=== PATIENT | male | born 1950 | race Caucasian/White ===

== ENCOUNTER → 2017-02-10 | Outpatient (CLI) | payer OTHER ==
--- NOTE | 2017-02-10 16:22 | RAD ---
PROCEDURE MRI study of the right shoulder without contrast HISTORY Right shoulder pain. History of glenoid cavity fracture. No surgical history. TECHNIQUE Noncontrast MRI sequences of the right shoulder were performed in all 3 planes. COMPARISON Radiographic series performed on February 08, 2017. No previous MRI is available. FINDINGS There is diffuse increased signal within the infraspinatus and supraspinatus tendons consistent with tendinosis. There is a partial articular surface tear involving the infraspinatus tendon which involves 50 percent of the thickness of the tendon. There is a partial articular surface tear of the anterior aspect of the lateral portion of the supraspinatus tendon at it's attachment to the footplate. Overlying external fibers are thin in this area. Therefore, this is a partial tear involving at least 75 percent of the thickness of the tendon here. This area measures 10 millimeters transversely seen on image 7 and series 6 and 8 millimeters in AP thickness on image 16 and series 8. Otherwise no complete rotator cuff tear is seen involving the supraspinatus or infraspinatus tendons. There is a tear of the transverse ligament extension of the subscapularis tendon at the attachment to the lesser tubercle allowing medial subluxation of the upper bicipital groove portion of the biceps tendon into the lateral substance of the subscapularis tendon. Otherwise no complete tear of the subscapularis tendon is seen. The intra-articular portion of the biceps tendon is poorly visualized and may be torn or atrophic. No muscle atrophy is seen. There is severe degenerative osteoarthritis and spurring of the AC joint. There is spurring of the inferior edge of the acromial process. A type 3 acromial process is seen. These findings may impinge the acromial humeral space. There are chronic cystic changes and bone marrow signal changes of the lateral aspect of the humeral head secondary to chronic impingement. No fracture or marrow infiltrative process is seen. There is mild degenerative spurring and osteoarthritis of the glenohumeral joint. No significant glenohumeral joint effusion is seen. No loose osteochondral body is evident. There is linear increased signal within the posterior superior aspect of the glenoid labrum consistent with a tear. No paralabral ganglion cyst or spinoglenoid notch ganglion cyst is seen. IMPRESSION Tendinosis of the infraspinatus and supraspinatus and subscapularis tendons. No complete rotator cuff tear is seen. There are partial articular surface tears of the infraspinatus tendon and supraspinatus tendon as discussed above. There is a tear of the transverse ligament extension of the subscapularis tendon at the attachment to the lesser tubercle allowing medial subluxation of the upper bicipital groove portion of the biceps tendon into the lateral substance of the subscapularis tendon. The intra-articular portion of the biceps tendon is not visualized and therefore may be atrophic or torn. Impingement of the acromial humeral space as discussed above. No subdeltoid or subacromial bursitis is seen. 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 Tear of the posterior superior aspect of the glenoid labrum. Electronically signed by: Faustino Mclean MD (Feb 10, 2017 16:20:26)
== END | disposition home or self-care (01) ==
LOC: MRI 14:05
PROVIDERS: ATTEND Nurse Practitioner Gerontology
DX: S42.144D Nondisplaced fracture of glenoid cavity of scapula, right shoulder, subsequent encounter for fracture with routine healing (principal); W19.XXXD Unspecified fall, subsequent encounter; Y93.89 Activity, other specified; Y92.89 Other specified places as the place of occurrence of the external cause; Y99.8 Other external cause status
CPT/HCPCS: 73221

== ENCOUNTER → 2017-04-05 | Outpatient (CLI) | payer OTHER ==
[~2017-04-05] MED LIST: SUMA100T3 PO
--- NOTE | 2017-04-05 13:53 | EKG ---
[facility] [address] [place] [address] Test Date: 2017-04-05 Test Time: 13:54:57 Pat Name: JALYN CARBALLO Department: Room: Gender: M [employer]: : 1950 Requested By: COLBY COHN Order Number: [id number] Reading MD: Migel Rothman Measurements Intervals [place] Rate: 77 P: 77 [place]: 152 QRS: 84 QRSD: 84 T: 67 QT: 366 QTc: 416 Interpretive Statements SINUS RHYTHM ATRIAL PREMATURE COMPLEX(ES) CANNOT RULE OUT PRIOR/REMOTE ANTER-SEPTAL INFARCT Electronically Signed On 04-07-2017 15:48:46 CDT by Migel Rothman
--- NOTE | 2017-04-05 14:16 | RAD ---
Chest, 2 views, 04/05/2017: History: Preop evaluation for shoulder surgery The heart size and pulmonary vascularity are normal. There is a calcified granuloma in the right upper lobe. Minimally prominent interstitial markings most likely reflect scarring. No acute infiltrate is seen. There is no evidence of pleural fluid. There is a mild thoracic scoliosis. Minimal spurring is present in the spine. IMPRESSION: 1. Probable mild fibrosis. 2. No acute cardiopulmonary abnormality is detected.
== END | disposition home or self-care (01) ==
LOC: SURGPAT 13:05
PROVIDERS: ATTEND Orthopaedic Surgery
DX: Z01.818 Encounter for other preprocedural examination (principal); J84.10 Pulmonary fibrosis, unspecified; R94.31 Abnormal electrocardiogram [ECG] [EKG]
CPT/HCPCS: 71020; 93005

== ENCOUNTER 2017-04-11 12:07 | Day surgery (SDC) | payer SELFPAY ==
[~2017-04-11] VITALS: Ht 182.9 cm; Wt 74.8 kg
[~2017-04-11 12:07] MED LIST changes: +HYDROmorphone 2 MG/ML VIAL IV PRN; +LIDOCAINE 1% 1 ML SYRINGE. ID PRN; +MEPERIDINE PF 25 MG/ML VIAL. IV PRN; +MIDAZOLAM HCL/PF 2 MG/2 ML VIAL. IV PRN; +MORPHINE SULFATE 4 MG/ML DISP.SYRIN. IV PRN; +PROCHLORPERAZINE 10 MG/2 ML VIAL. IV PRN; +diphenhydrAMINE 50 MG/ML VIAL IV PRN; +fentaNYL PF VIAL 100 MCG/2 ML VIAL IV PRN
[2017-04-11] MEDS: IV RINGERS,LACTATED 1000ML 1,000 ML IV SCH ×2 (13:00→19:15)
[2017-04-11] MEDS ORDERED: DEXAMETHASONE SOD PHOS 20 MG/5 ML VIAL. ONE (13:32)
[2017-04-11] MEDS ORDERED: FAMOTIDINE 20 MG/2 ML VIAL ONE (13:32)
[2017-04-11] MEDS ORDERED: fentaNYL PF VIAL 100 MCG/2 ML VIAL ONE (13:32)
[2017-04-11] MEDS ORDERED: LIDOCAINE 2% PF Vial for OR 5 ML VIAL. ONE (13:32)
[2017-04-11] MEDS ORDERED: ROCURONIUM 50 MG/5 ML VIAL. ONE (13:32)
[2017-04-11] MEDS ORDERED: PROPOFOL 20 ML IV ONE (13:32)
[2017-04-11] MEDS ORDERED: MIDAZOLAM HCL/PF 2 MG/2 ML VIAL. ONE (13:32)
[2017-04-11] MEDS ORDERED: ONDANSETRON PF 4 MG/2 ML VIAL. ONE (13:32)
[2017-04-11] MEDS ORDERED: ROPIVacaine 0.5% PF 30 ML VIAL. ONE (14:13)
[2017-04-11] MEDS ORDERED: EPINEPHrine VIAL 30 MG/30 ML VIAL ONE (14:32)
[2017-04-11] MEDS ORDERED: ePHEDrine PF IN SALINE 50 MG/5 ML DISP.SYRIN IV ONE (15:12)
[2017-04-11] MEDS ORDERED: GLYCOPYRROLATE 1 MG/5 ML VIAL. ONE (16:38)
[2017-04-11] MEDS ORDERED: NEOSTIGMINE METHYLSULFATE 5 MG/5 ML SYRINGE. ONE (16:38)
[2017-04-11] MEDS ORDERED: SEVOFLURANE > 120 MINUTES. IH ONE (16:42)
--- NOTE | 2017-04-11 17:38 | DISCH ---
DISCHARGE INSTRUCTIONS Condition on Discharge Condition on Discharge: Stable Activity After Discharge Activity Instructions for Disc: Other, see below Other activity instructions: passive motion of arm only, no active lifting, ok to eat etc elbow at side Diet after Discharge Diet after Discharge: Regular Wound Incision Care Wound/Incision Care: Ice to area for comfort, Change dressing Other wound/incision instructi: remove dressing 2 days may then shower Community/Resources/Services Services at Discharge: PT EVALUATE & TREAT Contacting the DRFer after DC Call your doctor for: Concerns you may have Follow-Up Follow up with: Erasto 10-14 days COLBY COHN MD Apr 11, 2017 17:38
[2017-04-11] MEDS ORDERED: OXYC-327 PO (17:39)
--- NOTE | 2017-04-11 17:41 | PDOC ---
BRIEF OPERATIVE NOTE Date: Apr 11, 2017 Pre-Op Diagnosis biceps fraying Post-Op Diagnosis same plus full thickness supraspinatus tear Procedure Performed right shoulder scope, arthroscopic rotator cuff repair, biceps tenodesis, distal clavicle excision, decompression Surgeon Erasto Anesthesiologist [place] Anesthesia Type: General, Regional Blood Loss 5cc Findings above Complications none COLBY COHN MD Apr 11, 2017 17:41
[2017-04-11] MEDS ORDERED: oxyCODONE/APAP 5/325 1 TAB TABLET PO ONE (18:15)
[2017-04-11 18:30] VITALS: BP 107/74
== END 2017-04-11 19:15 | disposition home or self-care (01) ==
LOC: SURG 12:07
PROVIDERS: ATTEND Orthopaedic Surgery
DX: S49.81XA Other specified injuries of right shoulder and upper arm, initial encounter (principal); M19.011 Primary osteoarthritis, right shoulder; X58.XXXA Exposure to other specified factors, initial encounter; Y93.89 Activity, other specified; Y92.89 Other specified places as the place of occurrence of the external cause; Y99.9 Unspecified external cause status; F32.9 Major depressive disorder, single episode, unspecified; Z87.39 Personal history of other diseases of the musculoskeletal system and connective tissue; Z72.0 Tobacco use
CPT/HCPCS: 29828; C1713; J0171; J0690; J1100; J2250; J2405; J2704; J2710; J2795; J3010; J3490; J7120; S0028